=== PATIENT | male | born 1990 | race Hispanic/Latino ===

== ENCOUNTER 2019-04-13 19:00 | Emergency (ER) | payer MEDICAID ==
--- NOTE | 2019-04-13 21:52 | Event Note ---
ED Screening Note ED Screening Note: states he was at work states that he slipped and the hand truck fell onto it c/o right ankle and right foot pain never injured before PMHx none no allergies to meds This initial assessment/diagnostic orders/clinical plan/treatment(s) is/are subject to change based on patients health status, clinical progression and re- assessment by fellow clinical providers in the ED. Further treatment and workup at subsequent clinical providers discretion. Patient/guardian urged not to elope from the ED as their condition may be serious if not clinically assessed and managed. Initial orders include: XR of the right ankle and foot
--- NOTE | 2019-04-13 23:21 | XRay Report ---
RIGHT FOOT 3 VIEWS INDICATION / CLINICAL INFORMATION: Hand truck fell onto him with right ankle/foot pain. COMPARISON: None available. FINDINGS: BONES / JOINT(S): There is a tiny spur at the insertion of the Achilles tendon on the calcaneus. Ther e is an acute, oblique, mildly displaced fracture of the distal fibular metadiaphysis. No other osseo us abnormality. SOFT TISSUES: There is mild soft tissue swelling anterior to the tibiotalar joint. ADDITIONAL FINDINGS: None. IMPRESSION: Acute fracture of the distal right fibula. Signer Name: Singh Cooley MD Signed: 04/13/2019 11:16 PM Workstation Name: [id number]
--- NOTE | 2019-04-13 23:22 | XRay Report ---
RIGHT ANKLE 4 VIEWS INDICATION / CLINICAL INFORMATION: Hand truck and crates >100 lbs fell on patient's foot/ankle today. Right ankle and foot pain. COMPARISON: None available. FINDINGS: BONES / JOINT(S): There is an acute, mildly displaced fracture of the distal fibular metadiaphysis. T he tibia is intact. I see no evidence of dislocation. SOFT TISSUES: There is moderately severe soft tissue swelling overlying the lateral malleolus. ADDITIONAL FINDINGS: None. IMPRESSION: Acute fracture of the distal right fibula with prominent overlying soft tissue swelling. Signer Name: Singh Cooley MD Signed: 04/13/2019 11:18 PM Workstation Name: [id number]
--- NOTE | 2019-04-13 23:51 | Emergency Department Report ---
ED Lower Extremity HPI - General Chief Complaint: Extremity Injury, Lower Stated Complaint: ANKLE PAIN Time Seen by Provider: 04/13/19 21:51 Source: patient Mode of arrival: Ambulatory Limitations: No Limitations - History of Present Illness Initial Comments: Patient is a 28-year-old white male with no past medical history who presents to the ED, no acute onset persistent severe right ankle and foot pain with swelling and mild deformity after a machine crushed his right ankle and foot at work about 8 hours ago. Patient states that he is unable to bear weight on the right ankle and foot because of severe pain. Patient denies fall, nausea, vomiting, shortness of breath, headache, dizziness, abdominal pain, back pain, numbness and tingling or weakness of right leg. MD Complaint: ankle injury (right ankle), foot injury (right knee) -: Sudden, hour(s) (8) Injury: Ankle: Right (pain, swelling and deformity), Foot: Right (Pain, swelling and mild defromity) Type of Injury: blunt, inversion Place: work Severity: severe Severity scale (0 -10): 9 Improves With: nothing Worsens With: weight bearing, movement, palpation Context: direct blow, other (right ankle crushed at work by machine) Associated Symptoms: snap/pop sensation, swelling, unable to bear weight. denies: numbness, tingling, able to partially bear weight, ambulatory - Related Data Previous Rx's Medication Instructions Recorded Last Taken Type Cyclobenzaprine [Flexeril] 10 mg PO Q8H PRN #21 tablet 04/13/19 Unknown Rx Ibuprofen [Motrin] 600 mg PO Q8H PRN #24 tablet 04/13/19 Unknown Rx Oxycodone HCl/Acetaminophen 1 each PO Q6HR PRN #12 tablet 04/13/19 Unknown Rx [Percocet 7.5/325 mg] Allergies Allergy/AdvReac Type Severity Reaction Status Date / Time No Known Allergies Allergy Verified 04/13/19 19:41 ED Review of Systems ROS: Stated complaint: ANKLE PAIN Other details as noted in HPI Constitutional: denies: chills, fever Eyes: denies: eye pain, eye discharge, vision change ENT: denies: ear pain, throat pain Respiratory: denies: cough, shortness of breath, wheezing Cardiovascular: denies: chest pain, palpitations Endocrine: no symptoms reported Gastrointestinal: denies: abdominal pain, nausea, vomiting, diarrhea Genitourinary: denies: urgency, dysuria Musculoskeletal: joint swelling (right foot and ankle and swelling), arthralgia (right ankle and foot pain with swelling). denies: back pain Skin: denies: rash, lesions Neurological: denies: headache, weakness, paresthesias Psychiatric: denies: anxiety, depression Hematological/Lymphatic: denies: easy bleeding, easy bruising ED Past Medical Hx - Social History Smoking Status: Never Smoker Substance Use Type: None - Medications Home Medications: Home Medications Medication Instructions Recorded Confirmed Last Taken Type Cyclobenzaprine [Flexeril] 10 mg PO Q8H PRN #21 tablet 04/13/19 Unknown Rx Ibuprofen [Motrin] 600 mg PO Q8H PRN #24 tablet 04/13/19 Unknown Rx Oxycodone HCl/Acetaminophen 1 each PO Q6HR PRN #12 tablet 04/13/19 Unknown Rx [Percocet 7.5/325 mg] ED Physical Exam - General Limitations: No Limitations General appearance: alert, in no apparent distress - Head Head exam: Present: atraumatic, normocephalic, normal inspection - Eye Eye exam: Present: normal appearance, PERRL, EOMI Pupils: Present: normal accommodation - ENT ENT exam: Present: normal exam, normal orophraynx, mucous membranes moist, TM's normal bilaterally, normal external ear exam - Neck Neck exam: Present: normal inspection, full ROM - Respiratory Respiratory exam: Present: normal lung sounds bilaterally. Absent: respiratory distress, wheezes, chest wall tenderness, accessory muscle use, prolonged expiratory - Cardiovascular Cardiovascular Exam: Present: regular rate, normal rhythm, normal heart sounds. Absent: systolic murmur, diastolic murmur, rubs, gallop - GI/Abdominal GI/Abdominal exam: Present: soft, normal bowel sounds. Absent: tenderness, guarding, hyperactive bowel sounds - Extremities Exam Extremities exam: Present: normal inspection, tenderness (palpable severe right ankle and foot tenderness with mild deformity and swelling, and limited range of motion due to pain), normal capillary refill, joint swelling (right ankle and foot swelling with tenderness). Absent: full ROM (Limited range of motion due to pain), calf tenderness - Back Exam Back exam: Present: normal inspection, full ROM. Absent: tenderness, CVA tenderness (R), CVA tenderness (L), muscle spasm, paraspinal tenderness - Neurological Exam Neurological exam: Present: alert, oriented X3, CN II-XII intact, normal gait, reflexes normal - Psychiatric Psychiatric exam: Present: normal affect, normal mood - Skin Skin exam: Present: warm, dry, intact, normal color. Absent: rash ED Course Vital Signs 04/13/19 21:52 Temperature 98.1 F Pulse Rate 83 Respiratory 16 Rate Blood Pressure 122/65 O2 Sat by Pulse 98 Oximetry ED Lower Extremity MDM - Radiology Data Findings [facility] [address] [place] [address] XRay Report Signed Patient: KUSUM FISHER MR#: [id number] : 1990 Acct:[id number] Age/Sex: 28 / M ADM Date: 04/13/19 Loc: ED Attending Dr: Ordering Physician: MATHEW CORTES Date of Service: 04/13/19 Procedure(s): XR ankle 3+V RT Accession Number(s): [id number] cc: MATHEW CORTES Fluoro Time In Minutes: RIGHT ANKLE 4 VIEWS INDICATION / CLINICAL INFORMATION: Hand truck and crates >100 lbs fell on patient's foot/ankle today. Right ankle and foot pain. COMPARISON: None available. FINDINGS: BONES / JOINT(S): There is an acute, mildly displaced fracture of the distal fibular metadiaphysis. The tibia is intact. I see no evidence of dislocation. SOFT TISSUES: There is moderately severe soft tissue swelling overlying the lateral malleolus. ADDITIONAL FINDINGS: None. IMPRESSION: Acute fracture of the distal right fibula with prominent overlying soft tissue swelling. Signer Name: Kulwinder Cooley MD Signed: 04/13/2019 11:18 PM Workstation Name: [id number] Transcribed By: RT Dictated By: Kulwinder Cooley MD Electronically Authenticated By: Kulwinder Cooley MD Signed Date/Time: 04/13/192317 DD/ 15 TD/TT: ----- Findings [facility] [address] [place] [address] XRay Report Signed Patient: KUSUM FISHER MR#: [id number] : 1990 Acct:[id number] Age/Sex: 28 / M ADM Date: 04/13/19 Loc: ED Attending Dr: Ordering Physician: MATHEW CORTES Date of Service: 04/13/19 Procedure(s): XR foot 3+V RT Accession Number(s): [id number] cc: MATHEW CORTES Fluoro Time In Minutes: RIGHT FOOT 3 VIEWS INDICATION / CLINICAL INFORMATION: Hand truck fell onto him with right ankle/foot pain. COMPARISON: None available. FINDINGS: BONES / JOINT(S): There is a tiny spur at the insertion of the Achilles tendon on the calcaneus. There is an acute, oblique, mildly displaced fracture of the distal fibular metadiaphysis. No other osseous abnormality. SOFT TISSUES: There is mild soft tissue swelling anterior to the tibiotalar joint. ADDITIONAL FINDINGS: None. IMPRESSION: Acute fracture of the distal right fibula. Signer Name: Kulwinder Cooley MD Signed: 04/13/2019 11:16 PM Workstation Name: [id number] Transcribed By: RT Dictated By: Kulwinder Cooley MD Electronically Authenticated By: Kulwinder Cooley MD Signed Date/Time: 04/13/196 DD/ 13 TD/TT: - Medical Decision Making This is a 28-year-old male who presented to the ED with right ankle and foot pain after a machine at work crushed his right ankle and foot over 8 hours ago. In the ED, patient is alert and oriented 3 and is not in any distress but appears to be in significant pain. Patient was treated for pain in the ED and right ankle and foot x-rays show am acute fracture of the distal right fibula wi th prominent overlying soft tissue swelling. The patient's right ankle and foot was splinted with posterior long leg splint and patient discharged home with a follow-up with the orthopedic surgeon coldfusion Dr. Ochoa on for further evaluation. Patient was advised to contact Dr. Ochoa's office first thing in the morning to schedule a follow-up appointment. Patient was advised to return to the ED immediately if symptoms get worse. - Differential Diagnosis Ankle fracture; foot fracture; ankle sprain; Foot sprain Critical care attestation.: If time is entered above; I have spent that time in minutes in the direct care of this critically ill patient, excluding procedure time. ED Disposition Clinical Impression: Displaced fracture of distal end of right fibula Sprain of right foot Qualifiers: Encounter type: initial encounter Qualified Code(s): S93.601A - Unspecified sprain of right foot, initial encounter Disposition: TO HOME OR SELFCARE Is pt being admited?: No Does the pt Need Aspirin: No Condition: Stable Instructions: Ankle Fracture (ED), Foot Sprain (ED) Additional Instructions: The x-rays today showed a displaced distal right fibula fracture with significant soft tissue swelling on the lateral right ankle. Take medication with food, drink plenty of fluids and follow-up with Dr. Ochoa, the orthopedic surgeon for further evaluation. Please contact Dr. Ochoa's office first thing in the morning to schedule a follow-up appointment. Prescriptions: Cyclobenzaprine [Flexeril] 10 mg PO Q8H PRN #21 tablet PRN Reason: Muscle Spasm Ibuprofen [Motrin] 600 mg PO Q8H PRN #24 tablet PRN Reason: Pain Oxycodone HCl/Acetaminophen [Percocet 7.5/325 mg] 1 each PO Q6HR PRN #12 tablet PRN Reason: Pain Referrals: KULWINDER OCHOA MD [Staff Physician] - PAMELA Forms: Work/School Release Form(ED) Time of Disposition: 23:55 Print Language: FAROESE
[2019-04-14] MEDS ORDERED: oxyCODONE /ACETAMINOPHEN 5-325MG TAB PO ONE
[2019-04-14] MEDS ORDERED: ONDANSETRON 4 MG ODT TAB PO ONE
[2019-04-14] MEDS ORDERED: IBUPROFEN 600 MG TAB PO ONE
[2019-04-14 02:25] VITALS: BP 120/75
== END 2019-04-14 01:35 | disposition home or self-care (01) ==
LOC: ED 19:00
DX: S82.831A Other fracture of upper and lower end of right fibula, initial encounter for closed fracture (principal); S93.601A Unspecified sprain of right foot, initial encounter; X58.XXXA Exposure to other specified factors, initial encounter; Y93.89 Activity, other specified; Y92.89 Other specified places as the place of occurrence of the external cause; Y99.8 Other external cause status
CPT/HCPCS: Q0162